=== PATIENT | female | born 1985 | race Caucasian/White ===

== ENCOUNTER 2016-11-03 14:47 | Emergency (ER) | payer OTHER ==
[2016-11-03 14:53] VITALS: BP 122/73; PULSE 94; TEMP 98.3; BMI 31.1
--- NOTE | 2016-11-03 14:57 | PDOC ---
Rapid Medical Evaluation Time Seen by Provider: 11/03/16 14:51 Medical Evaluation: 11/03/16 14:51 This is a 31 I have performed a brief in-person evaluation of this patient.' This is a 31 yo F who is 28 weeks presenting to the ER with a complaint of sore throat, ear pain bilaterally. No fevers or chills Symptoms present for the past 3 days but worsened yesterday Taking no medications for pain No drooling, no voice changes No abdominal pain, no vaginal bleeding Pertinent physical exam findings: Pharynx slightly erythematous, no tonsillar enlargement, no uvula deviation (otoscope not available at this time) I have ordered the following: Rapid Strep The patient will proceed to [facility] for further evaluation. 11/03/16 14:57
[2016-11-03] MEDS ORDERED: ACETAMINOPHEN 325 MG TABLET (FP) PO ONE (15:31)
--- NOTE | 2016-11-03 15:31 | PDOC ---
History of Present Illness - General Chief Complaint: Sore Throat Stated Complaint: CONGESTION (28 WKS ) Time Seen by Provider: 11/03/16 14:51 History Source: Patient Exam Limitations: No Limitations - History of Present Illness Initial Comments: 11/03/16 15:28 31 yr female with c/o sore throat for 3 days no fever. Pt denies abd pain, states she is 28 weeks and feels active movement. no sick contacts at home. no medical history. Past History - Past Medical History Allergies/Adverse Reactions: Allergies Allergy/AdvReac Type Severity Reaction Status Date / Time No Known Allergies Allergy Verified 11/03/16 14:53 Home Medications: Ambulatory Orders NK [No Known Home Medication] 11/03/16 Other medical history: PT DENIES MEDICAL HX - Reproductive History Is Patient Now?: Yes - Psycho/Social/Smoking Cessation Hx Suicidal Ideation: No Smoking History: Never smoked Hx Alcohol Use: No Drug/Substance Use Hx: No Review of Systems - Review of Systems Able to Perform ROS?: Yes Is the patient limited Persian proficient: No Constitutional: No: Symptoms Reported HEENTM: Yes: Symptoms Reported, Ear Pain, Throat Pain Respiratory: No: Symptoms reported Cardiac (ROS): No: Symptoms Reported ABD/GI: No: Symptoms Reported : No: Symptoms Reported Musculoskeletal: No: Symptoms Reported Integumentary: No: Symptoms Reported Neurological: No: Symptoms reported *Physical Exam - Vital Signs Last Vital Signs Temp Pulse Resp BP Pulse Ox 98.3 F 94 H 16 122/73 100 11/03/16 14:49 11/03/16 14:49 11/03/16 14:49 11/03/16 14:49 11/03/16 14:49 - Physical Exam General Appearance: Yes: Nourished, Appropriately Dressed HEENT: positive: EOMI, JIN, TMs Normal, Pharynx Normal Neck: positive: Supple. negative: Lymphadenopathy (R), Lymphadenopathy (L) Respiratory/Chest: positive: Lungs Clear, Normal Breath Sounds Cardiovascular: positive: Regular Rhythm, Regular Rate Musculoskeletal: positive: Normal Inspection, Vertebral Tenderness Extremity: positive: Normal Inspection, Normal Range of Motion Integumentary: positive: Normal Color, Dry, Warm Neurologic: positive: Fully Oriented, Normal Response, Motor Strength 5/5 Medical Decision Making - Medical Decision Making 11/03/16 15:30 cc: sore throat no fever rapid strep collected in triage pending result 11/03/16 16:14 *DC/Admit/Observation/Transfer Diagnosis at time of Disposition: Pharyngitis - Discharge Dispostion Disposition: HOME Condition at time of disposition: Good - Patient Instructions Additional Instructions: gargle with warm salt water 4-5 times a day tea with honey and lemon take tylenol 650mg every 4hrs as needed for pain follow with your primary care or [facility] if symptoms worsen the rapid strep was NEGATIVE today.
[2016-11-03] MEDS ORDERED: ACETAMINOPHEN 325 MG TABLET (FP) ONE (15:32)
== END 2016-11-03 16:17 | disposition home or self-care (01) ==
LOC: JERFT 14:47
DX: O26.892 Other specified pregnancy related conditions, second trimester (principal); J02.9 Acute pharyngitis, unspecified; Z3A.28 28 weeks gestation of pregnancy
CPT/HCPCS: 87070; 87430; 99281-25

== ENCOUNTER 2017-02-01 04:57 | Inpatient (IN) | payer OTHER ==
[2017-02-01 06:28] LABS: BASOPHIL 0.3 % (0-2.0); EOSINOPHIL 0.5 % (0-4.5); MCH 26.8 pg (25.7-33.7); MCHC 32.6 g/dl (32.0-36.0); MEAN CELL VOLUME 82.3 fl (80-96); MEAN PLT VOLUME 11.2 fl (7.5-11.1); NEUTROPHILS 56.6 % (42.8-82.8); PLATELET COUNT 159 K/MM3 (134-434); RDW 16.3 % (11.6-15.6); WHITE BLOOD COUNT 8.6 K/mm3 (4.0-10.0)
[2017-02-01 06:33] VITALS: BMI 35.5
[2017-02-01 06:40] LABS: INR 0.86 (0.82-1.09); PROTHROMBIN TIME (PATIENT) 9.4 SEC (9.98-11.88)
[2017-02-01 06:43] LABS: ACTIVATED PTT 27.8 SECONDS (26.9-34.4)
[2017-02-01 06:50] LABS: CALCIUM 8.8 mg/dL (8.5-10.1); COCKROFT - GAULT 171.207; CREATININE 0.6 mg/dL (0.55-1.02)
--- NOTE | 2017-02-01 07:25 | HP ---
Admitting History and Physical - Admission Chief Complaint: labor pains History of Present Illness: 31 y/o AT 40.3 weeks comes with complaints of contractions and comes to hospital at 530am. No issues during the . gbs neg, o pos, hiv neg. History Source: Patient Limitations to Obtaining History: No Limitations - Past Medical History LIABILITY CLAIMS EXAMINER: No: Alzheimer's, CVA, Dementia, Migraine, Multiple Sclerosis, Peripheral Neuropathy, Parkinson's, Seizure, Syncope, TIA, Vertigo, Other Cardiovascular: No: AFIB, Aneurysm, Aortic Insufficiency, Aortic Stenosis, CAD, CHF, Deep Vein Thrombosis, HTN, Hyperlipdemia, MO, Mitral Insufficiency, Mitral Stenosis, Murmur, Pulmonary Hypertension, Other Pulmonary: No: Asthma, Bronchitis, Cancer, COPD, O2 Dependent, Pneumonia, Previously Intubated, Pulmonary Embolus, Pulmonary Fibrosis, Sleep Apnea, Other Gastrointestinal: No: Ascites, Cancer, Constipation, Crohn's Disease, Diverticulitis, Diverticulosis, Esophageal Varices, Gastritis, GERD, GI Bleed, Hemorrhoids, Hiatal Hernia, Inflamatory Bowel Disease, Irritable Bowel Disease, Pancreatitis, Peptic Ulcer Disease, Ulcerative Colitis, Other Hepatobiliary: No: Cirrhosis, Cholelithiasis, Cholecystitis, Choledocholithiasis , Hepatitis A, Hepatitis B, Hepatitis C, Other ...: 5 ...Para: 2 Heme/Onc: No: Anemia, B12 Deficiency, Bleeding Disorder, Cancer, Current Chemotherapy, Current Radiation Therapy, Hemochromatosis, Hypercoaguable State, Myeloproliferative Synd, Sickle Cell Disease, Sickle Cell Trait, Thrombocytopenia, Other Infectious Disease: No: AIDS, C-Diff, Herpes Zoster, HIV, MRSA, STD's, Tuberculosis, VREF, Other Psych: No: Addictions, Anxiety, Bipolar, Depression, Panic, Psychosis, Schizophrenia, Other Musculoskeletal: No: Bursitis, Chronic low back pain, Hemiparesis, Hemiplegia, Osteoarthritis, Paraplegia, Other Endocrine: No: Maciej's Disease, Robbinston's Disease, Diabetes Insipidus, Diabetes Mellitus, Hyperparathyroidism, Hyperthyroidism, Hypothyroidism, Osteopenia, SIADH, Other Dermatology: No: Basal Cell, Cellulitis, Eczema, Melanoma, Psoriasis, Squamous Cell, Other - Past Surgical History Past Surgical History: No: None, AAA Repair, AICD, Amputation, Appendectomy, Arthrosocopy, AV Fistula/Graft, Bariatric Surgery, Breast Biopsy, Bypass, CABG, Carotid Endarterectomy, Cataract Removal, Cholecystectomy, Colectomy, Colonoscopy, Colostomy, Craniotomy, , Cystectomy, Hernia Repair, Hysterectomy, Ileal Conduit, Ileosotomy, Joint Replacement, Kidney Transplant, Laminectomy, Liver Transplant, Mastectomy, Nephrectomy, Oopherectomy, Orchiectomy, Permanent Pacemaker, Prostatectomy, Splenectomy, Stent, Thoracotomy , TURP, Tonsillectomy, Tubal Ligation, Upper Endoscopy, Valve Replacement, Vasectomy, Vein Stripping/Ligation - Advance Directives Advance Directives: No: Living Will, Health Care Proxy, DNR, Organ Donor, Tissue Donor, MOLST - Smoking History Smoking history: Never smoked - Alcohol/Substance Use Hx Alcohol Use: No History of Substance Use: denies: None, Cocaine, Heroin, Marijuana, Prescription , Tranquilizers - Social History Usual Living Arrangement: No: Alone, With Spouse, With Parent, With Significant Other, With Child, Assisted Living, Custodial, Other Home Medications - Allergies Allergies/Adverse Reactions: Allergies Allergy/AdvReac Type Severity Reaction Status Date / Time No Known Allergies Allergy Verified 02/01/17 06:34 - Home Medications Home Medications: Ambulatory Orders Vit Calc,Iron,Folic [ Vitamins] 1 each PO DAILY 02/01/17 Review of Systems - Review of Systems Constitutional: reports: No Symptoms Eyes: reports: No Symptoms HENT: reports: No Symptoms Neck: reports: No Symptoms Cardiovascular: reports: No Symptoms Respiratory: reports: No Symptoms Gastrointestinal: reports: No Symptoms Genitourinary: reports: No Symptoms Breasts: reports: No Symptoms Reported Musculoskeletal: reports: No Symptoms Integumentary: reports: No Symptoms Neurological: reports: No Symptoms Endocrine: reports: No Symptoms Hematology/Lymphatic: reports: No Symptoms Physical Examination Vital Signs: Vital Signs Temperature 97.7 F 02/01/17 05:49 Pulse Rate 62 02/01/17 05:49 Respiratory Rate 22 02/01/17 05:49 Blood Pressure 120/61 02/01/17 05:49 O2 Sat by Pulse Oximetry (%) Constitutional: Yes: Well Nourished Eyes: Yes: WNL HENT: Yes: WNL Neck: Yes: WNL Cardiovascular: Yes: WNL Respiratory: Yes: WNL Gastrointestinal: Yes: WNL ...Rectal Exam: Yes: WNL Renal/: Yes: WNL Breast(s): Yes: WNL Musculoskeletal: Yes: WNL Extremities: Yes: WNL Integumentary: Yes: WNL (ve 4cm/70/0 sta fht 150 reactive) Neurological: Yes: WNL ...Motor Strength: WNL Psychiatric: Yes: WNL Labs: CBC, BMP 02/01/17 06:00 02/01/17 06:00 Assessment/Plan as above pain meds prn expect
[2017-02-01] MEDS ORDERED: DEXTROSE 5%-LACTATED RINGERS 1,000 ML IV SCH (07:30)
--- NOTE | 2017-02-01 10:50 | PN ---
Progress Note (short form) - Note Progress Note: cx 6 cm 80 vx -1 arom, clear. fhr cat 1, contraction irregular, wants epidural
[2017-02-01] MEDS ORDERED: ELECTROLYTE-148 SOLN 1,000 ML IV SCH (11:00)
[2017-02-01] MEDS ORDERED: OXYTOCIN 15 UNITS/ LR 250 ML 250 ML IVPB SCH (11:45)
[2017-02-01] MEDS ORDERED: FENTANYL/BUPIVACAINE/NS/PF - PCEA - 50 ML DISP.SYRIN EP SCH (12:15)
--- NOTE | 2017-02-01 13:23 | PN ---
Progress Note (short form) - Note Progress Note: cx full 100 vx 2+. r cat 1
[2017-02-01] MEDS ORDERED: BENZOCAINE 28 GM HEMORRHOIDAL OINTMENT TP PRN (14:14)
[2017-02-01] MEDS ORDERED: METHYLERGONOVINE MALEATE 0.2 MG/1 ML AMP IM PRN (14:14)
[2017-02-01] MEDS ORDERED: WITCH HAZEL 50% (TUCKS) 40 PAD/JAR PAD TP PRN (14:14)
[2017-02-01] MEDS ORDERED: BISACODYL 10 MG SUPP.RECT RC PRN (14:14)
[2017-02-01] MEDS ORDERED: BENZOCAINE 20% 57 GM BOTTLE TP PRN (14:14)
[2017-02-01] MEDS ORDERED: D5W-LR W/ 20 UNITS OXYTOCIN 1,000 ML IV SCH (14:15)
[2017-02-01] MEDS: IBUPROFEN 600 MG TABLET (FP) PO PRN (19:54)
[2017-02-01] MEDS: ACETAMINOPHEN 325 MG TABLET (FP) PO PRN (19:55)
[2017-02-01] MEDS: FERROUS SO4 325 MG TABLET (FP) PO SCH (22:02)
[2017-02-02] MEDS: ACETAMINOPHEN 325 MG TABLET (FP) PO PRN ×3 (03:36→21:05)
[2017-02-02] MEDS: IBUPROFEN 600 MG TABLET (FP) PO PRN ×3 (03:37→21:04)
[2017-02-02 08:22] LABS: BASOPHIL 0.3 % (0-2.0); EOSINOPHIL 0.7 % (0-4.5); MCH 27.1 pg (25.7-33.7); MCHC 32.3 g/dl (32.0-36.0); MEAN PLT VOLUME 10.8 fl (7.5-11.1); NEUTROPHILS 62.6 % (42.8-82.8); PLATELET COUNT 121 K/MM3 (134-434); WHITE BLOOD COUNT 10.1 K/mm3 (4.0-10.0)
[2017-02-02] MEDS: PRENATAL VITAMINS W/ FOLIC ACID TABLET (FP) PO SCH ×2 (09:01→11:35)
[2017-02-02] MEDS: FERROUS SO4 325 MG TABLET (FP) PO SCH ×2 (09:01→21:02)
[2017-02-02] MEDS ORDERED: DIPHTH,PERTUSS(ACELL),TET 0.5 ML DISP.SYRIN IM ONE ×2 (10:00→16:00)
--- NOTE | 2017-02-02 11:44 | PN ---
Post Progress Note - Subjective Subjective: asymptomatic Post Day: 1 Type of Delivery: Vital Signs: Vital Signs Temperature 98.7 F 02/02/17 09:40 Pulse Rate 59 L 02/02/17 09:40 Respiratory Rate 20 02/02/17 09:40 Blood Pressure 102/67 02/02/17 09:40 O2 Sat by Pulse Oximetry (%) 100 02/01/17 13:50 Breast Exam: Yes: Soft. No: Engorged Uterus: Yes: Fundus Firm, Fundus below umbilicus, Non-tender Lochia: Yes: Rubra Lochia, amount: Moderate Extremities: Yes: Calves non-tender Perineum: Yes: Intact Activity: Ambulating - Labs Labs: CBC WBC 10.1 K/mm3 (4.0-10.0) H 02/02/17 07:10 RBC 4.05 M/mm3 (3.60-5.2) 02/02/17 07:10 Hgb 11.0 GM/dL (10.7-15.3) 02/02/17 07:10 Hct 34.0 % (32.4-45.2) 02/02/17 07:10 MCV 84.0 fl (80-96) 02/02/17 07:10 MCHC 32.3 g/dl (32.0-36.0) 02/02/17 07:10 RDW 16.0 % (11.6-15.6) H 02/02/17 07:10 Plt Count 121 K/MM3 (134-434) L D 02/02/17 07:10 MPV 10.8 fl (7.5-11.1) 02/02/17 07:10 Neutrophils % 62.6 % (42.8-82.8) 02/02/17 07:10 Lymphocytes % 29.1 % (8-40) 02/02/17 07:10 Monocytes % 7.3 % (3.8-10.2) 02/02/17 07:10 Eosinophils % 0.7 % (0-4.5) 02/02/17 07:10 Basophils % 0.3 % (0-2.0) 02/02/17 07:10 Assessment/Plan stable ct pp care
[2017-02-02] MEDS ORDERED: SENNOSIDES/DOCUSATE COMBO (SENNA PLUS) TABLET (UD) PO PRN (22:00)
[2017-02-03] MEDS: ACETAMINOPHEN 325 MG TABLET (FP) PO PRN (04:17)
[2017-02-03] MEDS: IBUPROFEN 600 MG TABLET (FP) PO PRN (04:17)
[2017-02-03] MEDS: FERROUS SO4 325 MG TABLET (FP) PO SCH (09:14)
[2017-02-03] MEDS: PRENATAL VITAMINS W/ FOLIC ACID TABLET (FP) PO SCH ×2 (09:15→13:18)
[2017-02-03 10:30] VITALS: BP 108/74; PULSE 54; TEMP 98.4
--- NOTE | 2017-02-03 15:01 | DS ---
Physical Exam-[facility] Vital Signs: Vital Signs Temperature 98.4 F 02/03/17 10:00 Pulse Rate 54 L 02/03/17 10:00 Respiratory Rate 18 02/03/17 10:00 Blood Pressure 108/74 02/03/17 10:00 O2 Sat by Pulse Oximetry (%) 100 02/01/17 13:50 Constitutional: Yes: Well Nourished Eyes: Yes: Conjunctiva Clear HENT: Yes: Atraumatic Neck: Yes: Supple, Trachea Midline Cardiovascular: Yes: Regular Rate and Rhythm Respiratory: Yes: Regular, CTA Bilaterally Gastrointestinal: Yes: Normal Bowel Sounds External Genitalia: Yes: Normal Vaginal Exam: Yes: Normal Cervix: Yes: Normal ....Post : Yes: Uterus firm, Slight lochia rubra Breast(s): Yes: WNL Neurological: Yes: Alert, Oriented ...Motor Strength: WNL Psychiatric: Yes: Alert, Oriented Labs: CBC, BMP 02/02/17 07:10 02/01/17 06:00 Delivery - Delivery Type of Anesthesia: Epidural Episiotomy/Laceration: 1st degree EBL (cc): 300 Delivery, Single - Stages of Labor Date 1st Stage Initiatied: 02/01/17 Time 1st Stage Initiated: 02:30 Date 2nd Stage Initiated: 02/01/17 Time 2nd Stage Initiated: 13:40 Date of Delivery: 02/01/17 Time of Delivery: 14:05 Time Placenta Delivered: 14:10 - Condition of Director Biology/Kiln Pusher Present: No Gender: Female Weight: 6 lb 2 oz Position: Left, OA Total Hours ROM (Hrs/Mins): 3hrs 20min - 1 Minute Total Score: 9 5 Minutes Total Score: 9 - [place] Feeding Plan Initial Plan: Elected not to breastfeed exclusively throughout hospitalization Discharge Summary Reason For Visit: LABOR ADMIT Procedures: Principal: Normal spontaneous vaginal delivery Hospital Course: Routine care Condition: Good - Instructions Diet, Activity, Other Instructions: Follow up at Clinic in 4-6 weeks Referrals: [facility] (Tonja Beverly) [Outside] Disposition: HOME - Home Medications Comprehensive Discharge Medication List: Ambulatory Orders Vit Calc,Iron,Folic [ Vitamins] 1 each PO DAILY 02/01/17
== END 2017-02-03 13:10 | disposition home or self-care (01) | DRG 560 ==
LOC: JLDR 04:57 → J3W 19:47
PROVIDERS: ADMIT Obstetrics & Gynecology; ATTEND Obstetrics & Gynecology
PROC: 0HQ9XZZ Repair Perineum Skin, External Approach (ICD-10-PCS; principal; 2017-02-01)
PROC: 10E0XZZ Delivery of Products of Conception, External Approach (ICD-10-PCS; 2017-02-01)
PROC: 10907ZC Drainage of Amniotic Fluid, Therapeutic from Products of Conception, Via Natural or Artificial Opening (ICD-10-PCS; 2017-02-01)
DX: O48.0 Post-term pregnancy (principal); Z3A.40 40 weeks gestation of pregnancy; O70.0 First degree perineal laceration during delivery; Z37.0 Single live birth
CPT/HCPCS: 36415; 59409; 80048; 85025; 85610; 85730; 86593; 86850; 86900; 86901; 90715